=== PATIENT | male | born 1955 | race Caucasian/White ===

== ENCOUNTER → 2020-06-20 | Outpatient (CLI) | payer MEDICARE | END | disposition home or self-care (01) | LOC: RAH 11:57 | PROVIDERS: ATTEND Urology | DX: N20.0 Calculus of kidney (principal); M47.816 Spondylosis without myelopathy or radiculopathy, lumbar region | CPT/HCPCS: 74018; 76100 ==

== ENCOUNTER → 2020-09-25 | Outpatient (CLI) | payer MEDICARE ==
[~2020-09-25] VITALS: Ht 180.3 cm; Wt 66.8 kg
[~2020-09-25] MED LIST: BEETS PO; CALC-1038 PO; CEFAZOLIN SODIUM 1 GM VIAL IVP SCH; COENZYME PO; GARL1TAB2 PO; LACTATED RINGERS 1000ML 1,000 ML IV SCH; MULT-1367 PO; PYCNOGENOL PO; TAMS-1 PO; fish oil PO; ginger PO; moringa PO; turmeric PO; vitamin e PO
[2020-09-25 15:53] LABS: HEMATOCRIT 40.9 % (42-54); MEAN CORPUSCULAR HEMOGLOBIN 32.9 pg (27.0-33.0); MEAN CORPUSCULAR VOLUME 96.9 fL (79-99); RED BLOOD CELL COUNT(AUTO) 4.22 MIL/uL (4.50-6.20); RED CELL DISTRIBUTION WIDTH 12.6 % (11.0-15.5); WHITE BLOOD COUNT (AUTO) 3.5 K/uL (4.8-10.8)
[2020-09-25 16:06] LABS: INR 1.06 (0.85-1.15); PROTHROMBIN TIME 11.5 SEC (9.6-11.6)
[2020-09-25 16:07] LABS: PARTIAL THROMBOPLASTIN TIME 26.2 SEC (26.3-35.5)
[2020-09-25 16:26] LABS: ALBUMIN 3.8 g/dL (3.5-5.0); BILIRUBIN,TOTAL 0.7 mg/dL (0.2-1.0); POTASSIUM 3.9 mmol/L (3.5-5.1); TOTAL PROTEIN, SERUM 7.1 g/dL (6.0-8.3)
[2020-09-29 10:57] VITALS: BP 122/73
== END ==
LOC: DAH 10:00 → EDSTATUS 12:15
PROVIDERS: ATTEND Urology
DX: N20.0 Calculus of kidney (principal); Z20.828 Contact with and (suspected) exposure to other viral communicable diseases; Z53.8 Procedure and treatment not carried out for other reasons; Z79.01 Long term (current) use of anticoagulants; Z79.899 Other long term (current) drug therapy
CPT/HCPCS: 36415; 71046; 80053; 85027; 85610; 85730; 87088; 93005; A6260; C9803; U0003

== ENCOUNTER → 2020-11-07 | Outpatient (CLI) | payer MEDICARE ==
[~2020-11-07] MED LIST changes: -CEFAZOLIN SODIUM 1 GM VIAL IVP SCH; -LACTATED RINGERS 1000ML 1,000 ML IV SCH
== END | disposition home or self-care (01) ==
LOC: RAH 12:28
PROVIDERS: ATTEND Urology
DX: N20.0 Calculus of kidney (principal)
CPT/HCPCS: 74018; 76100

== ENCOUNTER → 2021-08-06 | Outpatient (CLI) | payer MEDICARE ==
[~2021-08-06] MED LIST changes: +LIDOCAINE HCL 1% 20 ML VIAL ONE
== END | disposition home or self-care (01) ==
LOC: RAH 13:29
PROVIDERS: ATTEND Urology
DX: N20.0 Calculus of kidney (principal); K59.00 Constipation, unspecified
CPT/HCPCS: 74018; 76100

== ENCOUNTER → 2022-05-27 | Outpatient (CLI) | payer MEDICARE ==
[~2022-05-27] MED LIST changes: -LIDOCAINE HCL 1% 20 ML VIAL ONE
== END | disposition home or self-care (01) ==
LOC: RAH 09:23
PROVIDERS: ATTEND Urology
DX: N20.0 Calculus of kidney (principal); K59.00 Constipation, unspecified
CPT/HCPCS: 74018; 76100